=== PATIENT | female | born 1955 | race Asian ===

== ENCOUNTER 2020-07-03 15:07 | Outpatient (CLI) | payer OTHER | END 2020-07-03 22:07 | disposition home or self-care (01) | LOC: US 15:07 | DX: T81.89XA Other complications of procedures, not elsewhere classified, initial encounter (principal); I89.0 Lymphedema, not elsewhere classified; M79.605 Pain in left leg; M79.604 Pain in right leg ==

== ENCOUNTER 2020-07-04 13:08 | Outpatient (CLI) | payer OTHER | END 2020-07-04 20:43 | disposition home or self-care (01) | LOC: US 13:08 | DX: T81.89XA Other complications of procedures, not elsewhere classified, initial encounter (principal); I89.0 Lymphedema, not elsewhere classified; M79.605 Pain in left leg; M79.604 Pain in right leg ==

== ENCOUNTER 2020-07-31 10:32 | Outpatient (CLI) | payer OTHER | END 2020-07-31 23:35 | disposition home or self-care (01) | LOC: MRI 10:32 | DX: M17.11 Unilateral primary osteoarthritis, right knee (principal) ==